=== PATIENT | male | born 1950 | race Two or more races ===

== ENCOUNTER 2019-10-21 07:42 | Inpatient (IN) | payer MEDICARE ==
[~2019-10-21] VITALS: Ht 165.1 cm; Wt 70.8 kg
--- NOTE | 2019-10-21 07:45 | NUR ---
[id number], FROM HOME, PER FAMILY, PATIENT BECAME STIFF FOR 4-5MIN UNTIL AMBULANCE CAME. PER FAMILY, INITIALLY PATIENT WAS NOT ANSWERING QUESTIONS AND LATER ON WAS ABLE TO IN THE AMBULANCE EN ROUTE. BS 100, NO Hx OF SEIZURE, TO ER BED 9, HOOKED TO MONITOR, CHANGED TO HOSPITAL GOWN, PATIENT AOx3, BREATHING EVEN AND UNLABORED. AWAITING MD GANDARA.
--- NOTE | 2019-10-21 07:52 | NUR ---
DR BENDER AT BEDSIDE
[2019-10-21] MEDS ORDERED: IV NS 0.9% 1,000 ML BAG IV ONE (08:00)
--- NOTE | 2019-10-21 08:01 | NUR ---
AIR BRAKE ADJUSTER AT BEDSIDE
[2019-10-21 08:11] LABS: BASOPHILS # (AUTO) 0.1 /CMM (0.0-0.2); HEMATOCRIT 50 % (39-51); HEMOGLOBIN 16.3 g/dL (13.5-17.5); LYMPHOCYTES # (AUTO) 0.9 /CMM (0.8-4.8); MEAN CORPUSCULAR HGB CONC 33 g/dl (31.0-36.0); MEAN CORPUSCULAR VOLUME 96 fL (80-96); MONOCYTES # (AUTO) 0.4 /CMM (0.1-1.30); NEUTROPHILS # (AUTO) 7.8 /CMM (1.8-8.9); PLATELET COUNT (AUTO) 264 /CMM (150-450); RED BLOOD CELL COUNT(AUTO) 5.16 MIL/uL (4.5-6.0); WHITE BLOOD COUNT (AUTO) 11.9 K/uL (4.3-11.0)
[2019-10-21 08:17] LABS: CALCIUM, SERUM 9.2 mg/dL (8.5-10.1); CREATININE 1.1 mg/dL (0.6-1.3); POTASSIUM 3.6 mmol/L (3.5-5.1)
[2019-10-21 08:23] LABS: ALBUMIN 3.3 g/dL (3.4-5.0); BILIRUBIN,DIRECT 0.1 mg/dL (0.0-0.2); BILIRUBIN,TOTAL 0.3 mg/dL (0.2-1.0); TOTAL PROTEIN, SERUM 7.3 g/dL (6.4-8.2)
[2019-10-21 08:28] LABS: EOSINOPHILS % (AUTO) 0.6 % (0.0-6.0)
[2019-10-21 08:29] LABS: NEUTROPHILS % (AUTO) 60.5 % (43.0-81.0)
[2019-10-21 08:30] LABS: BASOPHILS % (AUTO) 0.2 % (0.0-2.0); MONOCYTES % (AUTO) 5.7 % (2.0-12.0)
[2019-10-21 08:41] LABS: ALCOHOL, BLOOD < 3 mg/dL (0-0)
--- NOTE | 2019-10-21 09:00 | NUR ---
paged epic for admission
--- NOTE | 2019-10-21 09:45 | NUR ---
309-2 Per House Sup
--- NOTE | 2019-10-21 09:53 | NUR ---
REPORT GIVEN TO ELEAZAR CONSTANTINO OF TELE UNIT
[2019-10-21 11:05] VITALS: BP 121/75
--- NOTE | 2019-10-21 11:05 | NUR ---
tele bariatric physician: admission admitted this 69 year old male pt from [facility] with dx: seizure. pt awake, a/ox4; icelandic speaking only. son here to translate. ambulate to bathroom upon arrival and voided. oriented to room and surroundings. no c/o pain or any discomfort. vss. tele sr=80's. seizure precaution initiated. kept comfortable. no distress noted. will continue to monitor. Addendum: 10/21/19 at 1528 by ELEAZAR BROOKS REGIONAL MERCHANDISING MANAGER pt refused full body assessment.
[2019-10-21 11:30] VITALS: BP 121/75
[2019-10-21] MEDS ORDERED: ACETAMINOPHEN 325 MG TABLET PO PRN (12:30)
[2019-10-21] MEDS ORDERED: MAG HYDROX/AL HYDROX/SIMETH 30 ML UDC PO PRN (12:30)
[2019-10-21] MEDS ORDERED: HYDROCODONE/APAP 5/325MG 1 EACH TABLET PO PRN (12:30)
[2019-10-21] MEDS ORDERED: MAGNESIUM HYDROXIDE 30 ML UDC PO PRN (12:30)
[2019-10-21] MEDS ORDERED: ZOLPIDEM TARTRATE 5 MG TABLET PO PRN (12:30)
[2019-10-21] MEDS ORDERED: Z GUARD REMEDY 2 OZ OINT TP PRN (12:30)
[2019-10-21] MEDS ORDERED: ONDANSETRON HCL/PF 4 MG/2 ML VIAL IVP PRN (12:30)
--- NOTE | 2019-10-21 13:15 | NUR ---
m/s acquisition marketing coordinator: notes tele removed as ordered. dr. sloan at bedside talking to family at this time.
[2019-10-21] MEDS: ENOXAPARIN SODIUM 40 MG/0.4 ML DISP.SYRIN SQ SCH (14:47)
[2019-10-21] MEDS: ALBUTEROL HALF STRENGTH 1.25 MG/3 ML VIAL.NEB NEB SCH ×2 (14:53→19:30)
--- NOTE | 2019-10-21 15:00 | NUR ---
m/s verify rep: id consult laura (bottling supervisor) at bedside and talking to family.
--- NOTE | 2019-10-21 15:30 | NUR ---
m/s body work auto trimmer: notes urine clean catch collected and lab notified, spoke to aristeo to fish bait picker the specimen.
[2019-10-21 16:00] VITALS: BP 107/51
--- NOTE | 2019-10-21 17:00 | NUR ---
m/s professor of journalism: notes dinner served with hob elevated. son remains at bedside.
--- NOTE | 2019-10-21 18:45 | NUR ---
m/s tree killer: notes sheila (id) at bedside. eeg completed with no seizure reported per barney (tech). son remains at bedside. needs attended. no distress noted.
--- NOTE | 2019-10-21 19:15 | NUR ---
m/s senior treasury analyst: notes report given to tristian (rn) for continuity of care.
--- NOTE | 2019-10-21 19:44 | NUR ---
RN NOTES RECEIVED PATIENT AWAKE, ALERT ORIENTEDX4, TAMAZIGHT SPEAKING, UNDERSTANDS SOME VIETNAMESE, NO SIGNS OF ACUTE DISTRESS NOTED, DENIES ANY PAIN OR DISCOMFORT AT THIS TIME, SAFETY MEASURES EMPHASIZE, ASPIRATION PRECAUTION MAINTAINED, BED IN LOW LOCKED POSITION, REPOSITIONED FOR COMFORT, CALL LIGHT WITHIN EASY REACH, SEIZURE PRECAUTION MAINTAINED. ALL NEEDS ANTICIPATED, WILL CONTINUE TO MONITOR ACCORDINGLY.
[2019-10-21 20:00] VITALS: BP 124/66
[2019-10-22 06:18] LABS: BASOPHILS % (AUTO) 0.3 % (0.0-2.0); EOSINOPHILS % (AUTO) 0.9 % (0.0-6.0); HEMATOCRIT 43 % (39-51); HEMOGLOBIN 14.5 g/dL (13.5-17.5); LYMPHOCYTES # (AUTO) 1.9 /CMM (0.8-4.8); LYMPHOCYTES % (AUTO) 24.2 % (20.0-44.0); MEAN CORPUSCULAR HGB CONC 34 g/dl (31.0-36.0); MEAN CORPUSCULAR VOLUME 94 fL (80-96); MONOCYTES # (AUTO) 0.5 /CMM (0.1-1.30); NEUTROPHILS # (AUTO) 5.4 /CMM (1.8-8.9); NEUTROPHILS % (AUTO) 68.6 % (43.0-81.0); PLATELET COUNT (AUTO) 217 /CMM (150-450); RED BLOOD CELL COUNT(AUTO) 4.57 MIL/uL (4.5-6.0); WHITE BLOOD COUNT (AUTO) 7.9 K/uL (4.3-11.0)
[2019-10-22 06:31] LABS: CALCIUM, SERUM 8.5 mg/dL (8.5-10.1); CREATININE 0.9 mg/dL (0.6-1.3); MAGNESIUM 2.4 mg/dL (1.8-2.4); PHOSPHORUS 3.2 mg/dL (2.5-4.9); POTASSIUM 3.7 mmol/L (3.5-5.1)
--- NOTE | 2019-10-22 07:24 | NUR ---
RN NOTES ABLE TO REST AND SLEPT AT INTERVALS, PATIENT AWAKE, ALERT ORIENTEDX4, ROMANIAN SPEAKING, UNDERSTANDS SOME ITALIAN, NO SIGNS OF ACUTE DISTRESS NOTED, DENIES ANY PAIN OR DISCOMFORT AT THIS TIME, SAFETY MEASURES EMPHASIZE, ASPIRATION PRECAUTION MAINTAINED, BED IN LOW LOCKED POSITION, REPOSITIONED FOR COMFORT, CALL LIGHT WITHIN EASY REACH, SEIZURE PRECAUTION MAINTAINED. ALL NEEDS ANTICIPATED, ENDORSED TO AM NURSE FOR CONTINUITY OF CARE.
--- NOTE | 2019-10-22 07:30 | NUR ---
RN OPENING NOTES RECEIVED PATIENT IN BED RESTING. A/OX3-4, ABLE TO MAKE NEEDS KNOWN, BRUNEIAN SPEAKING. NOT IN ANY FORM OF DISTRESS. NO SOB. DENIED PAIN OR DISCOMFORT AT THIS TIME. IV ACCESS INTACT AND PATENT. INSTRUCTED TO CALL FOR ASSISTANCE. SEIZURE PRECAUTIONS IN PLACE. BED LOW/LOCKED POSITION, PADDED SIDERAILS UPX2, CALL LIGHT IN REACH. WILL CONTINUE TO MONITOR ACCORDINGLY
[2019-10-22] MEDS: ALBUTEROL HALF STRENGTH 1.25 MG/3 ML VIAL.NEB NEB SCH ×4 (07:48→19:46)
[2019-10-22 08:00] VITALS: BP 123/65
[2019-10-22] MEDS: ENOXAPARIN SODIUM 40 MG/0.4 ML DISP.SYRIN SQ SCH (08:58)
--- NOTE | 2019-10-22 09:00 | NUR ---
RN NOTES LOVENOX 40MG SQ GIVEN. NO BLEEDING OR BRUISING NOTED
--- NOTE | 2019-10-22 15:00 | NUR ---
RN NOTES CALLED NEUROLOGIST OFFICE AND FOLLOWED UP NEURO CONSULT. [employer]S ELECT[employer]IC WARFARE OFFICER SAID WILL NOTIFY NEUROLOGIST
[2019-10-22 16:00] VITALS: BP 139/70
--- NOTE | 2019-10-22 19:30 | NUR ---
RN CLOSING NOTES PATIENT IN STABLE CONDITION. ALL NEEDS ATTENDED AND PROVIDED. ASSISTED IN ADLS. KEPT PAIENT SAFE AND COMFORTBALE. SEIZURE PRECAUTIONS IN PLACE. BED IN LO/LOCKED PSOTION, PADDED SIDERAILS UPX2, CALL LIGHT IN REACH. ENDORSED TO NIGHT RN FOR OC
--- NOTE | 2019-10-22 19:40 | NUR ---
MS RN OPENING NOTES RECEIVED PATIENT FROM MORNING SHIFT, ALERT AND ORIENTED X 4. VERBALLY RESPONSIVE GREEK SPEAKING ABLE TO FOLLOW DIRECTIONS. BREATHING REGULAR AND UNLABORED ON ROOM AIR. RIGHT AC G18 IV LINE INTACT AND PATENT, FLUSHING WELL WITH NO BLEEDING OR S/S OF INFECTION/INFILTRATION. BODY ASSESSMENT DONE; SKIN REMAINED INTACT, CLEAN AND DRY. NO COMPLAINTS OF PAIN/DISCOMFORT REPORTED OF THE TIME. ON SEIZURE PRECAUTIONS. CALL LIGHT IN REACH. BED LOW AND LOCKED ON SEMI FOWLERS POSITION. WILL CONTINUE TO MONITOR.
[2019-10-22 20:39] VITALS: BP 125/71
[2019-10-22 20:50] VITALS: BP 125/71
[2019-10-22] MEDS ORDERED: ATORVASTATIN 40 MG TABLET PO SCH (22:00)
--- NOTE | 2019-10-23 06:10 | NUR ---
MS RN CLOSING NOTES PATIENT IN BED, ALERT AND ORIENTED X 4. VERBALLY RESPONSIVE SERBIAN SPEAKING ABLE TO FOLLOW DIRECTIONS. BREATHING REGULAR AND UNLABORED ON ROOM AIR. RIGHT AC G18 IV LINE INTACT AND PATENT, FLUSHING WELL WITH NO BLEEDING OR S/S OF INFECTION/INFILTRATION. NO COMPLAINTS OF PAIN/DISCOMFORT REPORTED THE WHOLE SHIFT. NO EPISODE OF SEIZURE NOTED WITHIN THE SHIFT. MAINTAINED ON SEIZURE PRECAUTIONS. CALL LIGHT IN REACH. BED LOW AND LOCKED ON SEMI FOWLERS POSITION. WILL ENDORSE TO MORNING SHIFT FOR MARIA G.
[2019-10-23 06:49] LABS: BASOPHILS % (AUTO) 0.5 % (0.0-2.0); EOSINOPHILS % (AUTO) 1.1 % (0.0-6.0); HEMATOCRIT 43 % (39-51); HEMOGLOBIN 14.2 g/dL (13.5-17.5); LYMPHOCYTES % (AUTO) 26.8 % (20.0-44.0); MEAN CORPUSCULAR HGB CONC 33 g/dl (31.0-36.0); MEAN CORPUSCULAR VOLUME 94 fL (80-96); MONOCYTES # (AUTO) 0.5 /CMM (0.1-1.30); MONOCYTES % (AUTO) 7.2 % (2.0-12.0); NEUTROPHILS # (AUTO) 4.8 /CMM (1.8-8.9); NEUTROPHILS % (AUTO) 64.4 % (43.0-81.0); PLATELET COUNT (AUTO) 224 /CMM (150-450); RED BLOOD CELL COUNT(AUTO) 4.55 MIL/uL (4.5-6.0); WHITE BLOOD COUNT (AUTO) 7.5 K/uL (4.3-11.0)
[2019-10-23 06:56] LABS: CALCIUM, SERUM 8.4 mg/dL (8.5-10.1); CREATININE 0.8 mg/dL (0.6-1.3); MAGNESIUM 2.4 mg/dL (1.8-2.4); PHOSPHORUS 3.2 mg/dL (2.5-4.9); POTASSIUM 3.9 mmol/L (3.5-5.1)
--- NOTE | 2019-10-23 07:15 | NUR ---
MS RN OPENING NOTES RECEIVED PT IN BED, AWAKE. A/O X4. TURKISH SPEAKING BUT CAN UNDERSTAND SOME TURKS AND [place] ISLANDER. PT TOLERATING RA, WITH NO ACUTE RESPIRATORY DISTRESS NOTED. PT DENIES ANY PAIN OR DISCOMFORT AT THIS TIME. PT CONCERNED OF BEING DISCHARGED TODAY, RN INFORMED PT TO WAIT UNTIL MD/HOSPITALIST TO COME FIRST, AND WILL UPDATE PT. PT KEPT COMFORTABLE. CALL LIGHT KEPT WITHIN REACH. PT'S BED IN LOWEST, LOCKED POSITION WITH SRX3. WILL CONTINUE PLAN OF CARE.
[2019-10-23] MEDS: ALBUTEROL HALF STRENGTH 1.25 MG/3 ML VIAL.NEB NEB SCH ×3 (07:35→15:30)
[2019-10-23 08:00] VITALS: BP 132/70
[2019-10-23] MEDS ORDERED: ATOR40TA PO (08:53)
[2019-10-23] MEDS: ENOXAPARIN SODIUM 40 MG/0.4 ML DISP.SYRIN SQ SCH (09:51)
--- NOTE | 2019-10-23 16:31 | NUR ---
MS LARGE ENGINE ASSEMBLER NOTES PT, AWAKE, A/O X4. [place] SPEAKING BUT CAN UNDERSTAND SOME IRISH. PT TOLERATING RA, WITH NO ACUTE RESPIRATORY DISTRESS NOTED. PT DENIES ANY PAIN OR DISCOMFORT AT THE TIME OF DISCHARGE. DISCHARGE INSTRUCTIONS REVIEWED AND SIGNED BY SON/BLANQUITA. ALL BELONGINGS WITH THE PT. PROVIDED DR CHAIDEZ'S OFFICE NUMBER FOR EEG AND HOSPITALIST DR ESCOBAR. PIV TO LAC, REMOVED AND APPLIED DRESSING. SKIN INTACT, NO PICTURES TAKEN AND FILED IN THE CHART. ALL NEEDS AND CARE ATTENDED. MD/AZIZA AND LEYLA/MICHAELA MADE AWARE OF DISCHARGE. PT LEFT THE UNIT AT 1630, ESCORTED BY MATEUSZ TO THE LOBBY.
== END 2019-10-23 16:30 | disposition home or self-care (01) | DRG 101 ==
LOC: ER 07:44 → TELE 10:34 → MED 11:11 → TELE 11:16 → MED 13:13
PROVIDERS: ADMIT Hospitalist; ATTEND Student in an Organized Health Care Education/Training Program
DX: R56.9 Unspecified convulsions (principal); J98.11 Atelectasis; E44.1 Mild protein-calorie malnutrition; F03.90 Unspecified dementia, unspecified severity, without behavioral disturbance, psychotic disturbance, mood disturbance, and anxiety; Z68.26 Body mass index [BMI] 26.0-26.9, adult; D72.829 Elevated white blood cell count, unspecified; Z87.891 Personal history of nicotine dependence; E88.09 Other disorders of plasma-protein metabolism, not elsewhere classified; Z86.19 Personal history of other infectious and parasitic diseases
CPT/HCPCS: 36415; 70450-TC; 71045-TC; 80048-TC; 80061-TC; 80076-TC; 80305; 82962-TC; 83735-TC; 84100-TC; 84484-TC; 85025-TC; 87040-TC; 87081-TC; 87086-TC; 95819-TC; 97116-TC; 97530-TC; G0378; G0480; J1650; J7030

== ENCOUNTER 2019-10-28 13:18 | Outpatient (CLI) | payer SELFPAY ==
[~2019-10-28 13:18] MED LIST: ATOR40TA PO
== END 2019-10-28 23:59 | disposition home or self-care (01) ==
LOC: MSC 13:18
PROVIDERS: ATTEND Internal Medicine
DX: B69.0 Cysticercosis of central nervous system (principal); E44.1 Mild protein-calorie malnutrition; E88.09 Other disorders of plasma-protein metabolism, not elsewhere classified